=== PATIENT | male | born 1935 | race Two or more races ===

== ENCOUNTER 2016-10-29 23:18 | Inpatient (IN) | payer MEDICAID, MEDICARE ==
[2016-10-29] MEDS ORDERED: IV NS 0.9% 500 ML IV ONE (23:32)
[2016-10-29] MEDS ORDERED: IV SET PRIMARY 1 EA INFUS.SET MC ONE ×2 (23:32)
[2016-10-29] MEDS ORDERED: TERA2CAP4 PO (23:35)
[2016-10-29] MEDS ORDERED: SPIR25TA4 PO (23:35)
[2016-10-29] MEDS ORDERED: FURO-145 PO (23:35)
[2016-10-29] MEDS ORDERED: AMLO2.5T PO (23:35)
[2016-10-29] MEDS ORDERED: AMIO100T4 PO (23:35)
[2016-10-29] MEDS ORDERED: METF500T4 PO (23:35)
[2016-10-29] MEDS ORDERED: DONE23TA3 PO (23:35)
[2016-10-30] MEDS ORDERED: IV NS 0.9% 500 ML BAG IV ONE
[2016-10-30] MEDS ORDERED: IV SET PRIMARY 1 EA INFUS.SET MC ONE (00:26)
[2016-10-30] MEDS ORDERED: IV NS 0.9% 1,000 ML ONE ×4 (00:26→05:51)
[2016-10-30] MEDS ORDERED: IV NS 0.9% 1,000 ML BAG IV ONE ×2 (01:00→04:00)
[2016-10-30] MEDS ORDERED: METF10002 PO (01:22)
[2016-10-30] MEDS ORDERED: TERA5CAP4 PO (01:22)
[2016-10-30] MEDS ORDERED: DONE5TAB34 PO (01:29)
[2016-10-30] MEDS ORDERED: AMLO-62 PO (01:29)
[2016-10-30] MEDS ORDERED: FURO40TA5 PO (01:29)
[2016-10-30] MEDS ORDERED: IV NS 0.9% 1,000 ML IV ONE (01:32)
[2016-10-30] MEDS ORDERED: ONDANSETRON HCL/PF 4 MG/2 ML VIAL IVP PRN (03:30)
[2016-10-30] MEDS ORDERED: ACETAMINOPHEN 325 MG TABLET PO PRN (03:30)
[2016-10-30] MEDS ORDERED: DEXTROSE 50%-WATER 50 ML DISP.SYRIN IV PRN (03:30)
[2016-10-30] MEDS ORDERED: IV SET PRIMARY PUMP SET 1 EA INFUS.SET MC ONE (04:47)
[2016-10-30] MEDS: BLOOD SUGAR DIAGNOSTIC 1 EACH STRIP IN SCH ×4 (06:34→22:21)
[2016-10-30] MEDS: IV NS 0.9% 1,000 ML IV PRN ×3 (06:49→22:25)
[2016-10-30] MEDS: PANTOPRAZOLE 40 MG TABLET.DR PO SCH (09:48)
[2016-10-30] MEDS: DONEPEZIL 5 MG TABLET PO SCH ×2 (09:48→17:03)
[2016-10-30] MEDS: AMIODARONE HCL 200 MG TABLET PO SCH (11:30)
[2016-10-30] MEDS: INSULIN REGULAR, HUMAN 100 UNIT/ML 3 ML VIAL SQ PRN (12:00)
[2016-10-30] MEDS: TERAZOSIN HCL 5 MG CAPSULE PO SCH (18:40)
[2016-10-31] MEDS: BLOOD SUGAR DIAGNOSTIC 1 EACH STRIP IN SCH ×4 (06:32→21:10)
[2016-10-31] MEDS: PANTOPRAZOLE 40 MG TABLET.DR PO SCH (08:48)
[2016-10-31] MEDS: DONEPEZIL 5 MG TABLET PO SCH ×2 (08:50→16:56)
[2016-10-31] MEDS: AMIODARONE HCL 200 MG TABLET PO SCH (08:52)
[2016-10-31] MEDS ORDERED: SECONDARY IV SET 1 EA INFUS.SET MC ONE (09:53)
[2016-10-31] MEDS: Magnesium 1GM/D5W 100ML PREMIX 100 ML IV SCH ×4 (09:57→15:19)
[2016-10-31] MEDS: INSULIN REGULAR, HUMAN 100 UNIT/ML 3 ML VIAL SQ PRN (12:14)
[2016-10-31] MEDS: IV NS 0.9% 1,000 ML IV PRN (15:52)
[2016-10-31] MEDS: TERAZOSIN HCL 5 MG CAPSULE PO SCH (16:57)
[2016-11-01] MEDS: IV NS 0.9% 1,000 ML IV PRN ×2 (03:29→21:25)
[2016-11-01] MEDS: BLOOD SUGAR DIAGNOSTIC 1 EACH STRIP IN SCH ×4 (07:30→21:25)
[2016-11-01] MEDS: PANTOPRAZOLE 40 MG TABLET.DR PO SCH (08:26)
[2016-11-01] MEDS: DONEPEZIL 5 MG TABLET PO SCH ×2 (08:26→17:28)
[2016-11-01] MEDS: AMIODARONE HCL 200 MG TABLET PO SCH (08:27)
[2016-11-01] MEDS ORDERED: FURO-144 PO (11:08)
[2016-11-01] MEDS: TERAZOSIN HCL 5 MG CAPSULE PO SCH (17:29)
[2016-11-01] MEDS ORDERED: K PHOS NEUTRAL 250 MG TABLET PO ONE (17:30)
[2016-11-01] MEDS: INSULIN REGULAR, HUMAN 100 UNIT/ML 3 ML VIAL SQ PRN (17:31)
[2016-11-02] MEDS: BLOOD SUGAR DIAGNOSTIC 1 EACH STRIP IN SCH ×4 (08:22→22:09)
[2016-11-02] MEDS: PANTOPRAZOLE 40 MG TABLET.DR PO SCH (08:26)
[2016-11-02] MEDS: AMIODARONE HCL 200 MG TABLET PO SCH (08:26)
[2016-11-02] MEDS: DONEPEZIL 5 MG TABLET PO SCH ×2 (08:26→16:35)
[2016-11-02] MEDS: INSULIN REGULAR, HUMAN 100 UNIT/ML 3 ML VIAL SQ PRN (16:37)
[2016-11-03] MEDS: BLOOD SUGAR DIAGNOSTIC 1 EACH STRIP IN SCH ×2 (08:26→12:01)
[2016-11-03] MEDS: PANTOPRAZOLE 40 MG TABLET.DR PO SCH (08:44)
[2016-11-03] MEDS: AMIODARONE HCL 200 MG TABLET PO SCH (08:44)
[2016-11-03] MEDS: DONEPEZIL 5 MG TABLET PO SCH (08:44)
[2016-11-03] MEDS: INSULIN REGULAR, HUMAN 100 UNIT/ML 3 ML VIAL SQ PRN (14:51)
== END 2016-11-03 16:56 | disposition home or self-care (01) | DRG 48 ==
DX: G90.8 Other disorders of autonomic nervous system (principal); N17.0 Acute kidney failure with tubular necrosis; I50.23 Acute on chronic systolic (congestive) heart failure; I95.1 Orthostatic hypotension; I13.0 Hypertensive heart and chronic kidney disease with heart failure and stage 1 through stage 4 chronic kidney disease, or unspecified chronic kidney disease; E11.22 Type 2 diabetes mellitus with diabetic chronic kidney disease; F03.90 Unspecified dementia, unspecified severity, without behavioral disturbance, psychotic disturbance, mood disturbance, and anxiety; N18.9 Chronic kidney disease, unspecified; Z95.5 Presence of coronary angioplasty implant and graft; Z95.810 Presence of automatic (implantable) cardiac defibrillator; I25.10 Atherosclerotic heart disease of native coronary artery without angina pectoris; D64.9 Anemia, unspecified; E03.9 Hypothyroidism, unspecified; N40.0 Benign prostatic hyperplasia without lower urinary tract symptoms

== ENCOUNTER 2018-01-06 17:56 | Inpatient (IN) | payer MEDICAID, MEDICARE ==
[~2018-01-06] VITALS: Ht 165.1 cm; Wt 70.4 kg
[~2018-01-06 17:56] MED LIST: AMIO100T4 PO; AMLO-62 PO; DONE5TAB34 PO; FURO-144 PO; METF-442 PO; SPIR25TA6 PO
[2018-01-06] MEDS ORDERED: ASPIRIN 325 MG TABLET PO ONE (18:30)
[2018-01-06 18:36] LABS: BASOPHILS # (AUTO) 0.1 /CMM (0.0-0.2); EOSINOPHILS % (AUTO) 4.7 % (0.0-6.0); HEMATOCRIT 34 % (39-51); HEMOGLOBIN 11.4 g/dL (13.5-17.5); LYMPHOCYTES # (AUTO) 1.7 /CMM (0.8-4.8); MEAN CORPUSCULAR HGB CONC 34 g/dl (31.0-36.0); MEAN CORPUSCULAR VOLUME 91 fL (80-96); MONOCYTES # (AUTO) 0.4 /CMM (0.1-1.30); NEUTROPHILS # (AUTO) 3.8 /CMM (1.8-8.9); NEUTROPHILS % (AUTO) 60.3 % (43.0-81.0); PLATELET COUNT (AUTO) 177 /CMM (150-450); RDW COEFFICIENT OF VARIATION 14.4 (11.5-15.0); RED BLOOD CELL COUNT(AUTO) 3.67 MIL/uL (4.5-6.0); WHITE BLOOD COUNT (AUTO) 6.3 K/uL (4.3-11.0)
[2018-01-06] MEDS ORDERED: ASPIRIN 325 MG TABLET ONE (18:37)
--- NOTE | 2018-01-06 18:39 | NUR ---
SITE DAMAGE PREVENTION TECHNICIAN AT BEDSIDE
[2018-01-06 18:46] LABS: CALCIUM, SERUM 9.4 mg/dL (8.5-10.1); CARBON DIOXIDE 17 mmol/L (21-32); CHLORIDE 110 mmol/L (98-107); CREATININE 1.2 mg/dL (0.6-1.3); GLUCOSE 103 mg/dL (74-106); POTASSIUM 5.6 mmol/L (3.5-5.1); SODIUM SERUM 137 mmol/L (136-145); UREA NITROGEN, BLOOD 18 mg/dL (7-18)
[2018-01-06 18:48] LABS: INR 1.08 (0.85-1.15)
[2018-01-06 18:53] LABS: TROPONIN I < 0.017 ng/mL (0.00-0.056)
[2018-01-06 18:58] LABS: ALANINE AMINOTRANSFERASE 13 U/L (12-78); ALBUMIN 3.2 g/dL (3.4-5.0); ALKALINE PHOSPHATASE 74 U/L (46-116); ASPARTATE AMINOTRANSFERASE 16 U/L (15-37); B-TYPE NATRIURETIC PEPTIDE 12863 PG/ML (0-125); BILIRUBIN,DIRECT 0.1 mg/dL (0.0-0.2); BILIRUBIN,TOTAL 0.2 mg/dL (0.2-1.0); TOTAL PROTEIN, SERUM 7.1 g/dL (6.4-8.2)
--- NOTE | 2018-01-06 19:16 | NUR ---
ASSUMED CARE. RECEIVED REPORT FROM AM SHIFT RN SAIMA. PT RESTING QUIETLY, NO ACUTE DISTRESS NOTED, RESP EVEN AND UNLABORED. NO PAIN OR DISCOMFORT NOTED AT THIS TIME. PENDING LAB RESULTS.
[2018-01-06] MEDS ORDERED: NITROGLYCERIN PACKET 1 GM PACKET ONE (19:43)
[2018-01-06] MEDS ORDERED: FUROSEMIDE 40 MG/4 ML VIAL ONE (19:43)
--- NOTE | 2018-01-06 19:48 | NUR ---
PT MEDICATED BY RN PER ER MD ORDER.
[2018-01-06] MEDS ORDERED: NITROGLYCERIN PACKET 1 GM PACKET TOP ONE (20:00)
[2018-01-06] MEDS ORDERED: FUROSEMIDE 40 MG/4 ML VIAL IV ONE (20:00)
[2018-01-06] MEDS ORDERED: HYDROCODONE/APAP 5/325MG 1 EACH TABLET PO PRN (20:30)
[2018-01-06] MEDS ORDERED: ONDANSETRON HCL/PF 4 MG/2 ML VIAL IVP PRN (20:30)
[2018-01-06] MEDS ORDERED: ACETAMINOPHEN 325 MG TABLET PO PRN (20:30)
--- NOTE | 2018-01-06 20:40 | NUR ---
PT IS ASSIGNED TO TELE RM#: [id number], PT IS DIAGNOSED WITH CHF, AND SRINIVAS DURHAM IS THE ACCEPTING VETERINARY POULTRY INSPECTOR
--- NOTE | 2018-01-06 20:43 | NUR ---
SRINIVAS DURHAM ACNP AT BEDSIDE TO EVAL PT.
--- NOTE | 2018-01-06 20:45 | NUR ---
REPORT CALLED TO BIOMETRIC SCREENERNORA CARLISLE. WILL TRANSPORT PT VIA ACLS PROTOCOL.
[2018-01-06 21:20] VITALS: BP 129/74
--- NOTE | 2018-01-06 21:25 | NUR ---
FIELD TRAFFIC INVESTIGATOR NOTES PT ARRIVED ON TO THE UNIT VIA [place] @[id number] ACCOMPANIED BY HIS AND DAUGHTER. PT IS PRIMARILY PORTUGUESE SPEAKER, DAUGHTER ABLE TO PROVIDE HISTORY FOR PT. PT BIB FAMILY DUE TO "DIZZINESS" IN THE MORNING. PT HAS A LEFT HAND #20 IV, INTACT AND PATENT. NO COMPLAINTS OF PAIN, SOB, OR DISTRESS AT THIS TIME. PT IS TELE MONITORED SINUS RHYTHM, WITH BBB, PVS, AND TRIGEMINY. PT HAS AN IMPLANTED DEFIB IN HIS LEFT CHEST WALL. PT ORIENTED TO THE USE OF THE CALL LIGHT. ALL PT BELONGINGS THAT ARE STAYING AT THE HOSPITAL ARE ACCOUNTED FOR AND DOCUMENTED. WILL CARRY OUT ALL MD ORDERS. SAFETY PRECAUTIONS IN PLACE. BED IN LOWEST LOCKED, POSITION, X2 SIDE RAILS UP, CALL LIGHT WITHIN REACH. WILL CONTINUE TO MONITOR.
[2018-01-06] MEDS ORDERED: DEXTROSE 50%-WATER 50 ML DISP.SYRIN IV PRN (21:30)
[2018-01-06] MEDS ORDERED: MEGE40TA GT (22:28)
[2018-01-06] MEDS ORDERED: CARV6.25 PO (22:28)
[2018-01-06] MEDS ORDERED: LEVO88TA5 PO (22:28)
[2018-01-06] MEDS: BLOOD SUGAR DIAGNOSTIC 1 EACH STRIP IN SCH (22:57)
[2018-01-07] VITALS: BP 125/76
[2018-01-07 04:00] VITALS: BP 127/73
--- NOTE | 2018-01-07 06:52 | NUR ---
RN CLOSING NOTE PT RESTING IN BED. NO COMPLAINTS OF PAIN, SOB OR DISTRESS OVERNIGHT. PT HAS A LEFT HAND #20 IV, INTACT AND PATENT. PT IS TELE MONITORED SINUS RHYTHM, WITH BBB, PVS, AND TRIGEMINY RATE IN THE 70'S. SAFETY PRECAUTIONS IN PLACE. BED IN LOWEST LOCKED, POSITION, X2 SIDE RAILS UP, CALL LIGHT WITHIN REACH. WILL ENDORSE TO DAY SHIFT NURSE FOR CONTINUITY OF CARE.
[2018-01-07 07:17] LABS: BASOPHILS % (AUTO) 0.6 % (0.0-2.0); EOSINOPHILS % (AUTO) 4.8 % (0.0-6.0); HEMATOCRIT 32 % (39-51); HEMOGLOBIN 10.6 g/dL (13.5-17.5); LYMPHOCYTES # (AUTO) 1.8 /CMM (0.8-4.8); MEAN CORPUSCULAR HGB CONC 34 g/dl (31.0-36.0); MEAN CORPUSCULAR VOLUME 92 fL (80-96); MONOCYTES # (AUTO) 0.6 /CMM (0.1-1.30); MONOCYTES % (AUTO) 9.1 % (2.0-12.0); NEUTROPHILS # (AUTO) 3.7 /CMM (1.8-8.9); NEUTROPHILS % (AUTO) 57.5 % (43.0-81.0); PLATELET COUNT (AUTO) 160 /CMM (150-450); RDW COEFFICIENT OF VARIATION 14.7 (11.5-15.0); RED BLOOD CELL COUNT(AUTO) 3.43 MIL/uL (4.5-6.0); WHITE BLOOD COUNT (AUTO) 6.4 K/uL (4.3-11.0)
--- NOTE | 2018-01-07 07:19 | NUR ---
STEEL CUTTER OPENING NOTES PT RECEIVED AWAKE IN BED IN NO ACUTE SIGNS OF DISTRESS. HOB ELEVATED. A/O X4, KHMER SPEAKING, DENIES ANY PAIN OR DISCOMFORTS AT THIS TIME. ON SUPPLEMENTAL 02 VIA N/C @ 2LPM, BREATHING EVEN AND UNLABORED. ON TELE-MONITORING WITH CURRENT READING OF SINUS RHYTHM WITH BBB WITH HR OF 83. IV ACCESS ON LEFT HAND #20 INTACT AND PATENT. SAFETY PRECAUTIONS IN PLACE. BED IN LOWEST/LOCKED POSITION WITH SIDE RAILS UP X2. CALL LIGHT WITHIN REACH. WILL CONTINUE TO MONITOR PT ACCORDINGLY.
[2018-01-07 07:25] LABS: ALANINE AMINOTRANSFERASE 14 U/L (12-78); ALBUMIN 2.9 g/dL (3.4-5.0); ALKALINE PHOSPHATASE 72 U/L (46-116); ASPARTATE AMINOTRANSFERASE 17 U/L (15-37); BILIRUBIN,TOTAL 0.3 mg/dL (0.2-1.0); CALCIUM, SERUM 9.1 mg/dL (8.5-10.1); CARBON DIOXIDE 21 mmol/L (21-32); CHLORIDE 111 mmol/L (98-107); CREATININE 1.2 mg/dL (0.6-1.3); GLUCOSE 90 mg/dL (74-106); MAGNESIUM 1.3 mg/dL (1.8-2.4); PHOSPHORUS 3.3 mg/dL (2.5-4.9); POTASSIUM 5.1 mmol/L (3.5-5.1); SODIUM SERUM 139 mmol/L (136-145); TOTAL PROTEIN, SERUM 6.3 g/dL (6.4-8.2); UREA NITROGEN, BLOOD 17 mg/dL (7-18)
[2018-01-07] MEDS: BLOOD SUGAR DIAGNOSTIC 1 EACH STRIP IN SCH ×4 (07:44→21:21)
[2018-01-07 08:00] VITALS: BP 127/73
[2018-01-07] MEDS ORDERED: FUROSEMIDE 20 MG/2 ML VIAL IV SCH (08:00)
[2018-01-07 08:54] LABS: CHOLESTEROL 150 mg/dL (<200); HDL CHOLESTEROL 31 mg/dL (40-60); LDL 111 mg/dL (0-99); THYROID STIMULATING HORMONE 7.481 uIU/mL (0.358-3.74); TRIGLYCERIDES 99 mg/dL (30-150)
[2018-01-07] MEDS: FUROSEMIDE 40 MG/4 ML VIAL IV SCH ×2 (08:55→12:14)
[2018-01-07] MEDS: PANTOPRAZOLE 40 MG TABLET.DR PO SCH (08:55)
[2018-01-07] MEDS: MEGESTROL ACETATE 40 MG TABLET PO SCH (08:56)
[2018-01-07] MEDS: LEVOTHYROXINE SODIUM 88 MCG TABLET PO SCH (08:56)
[2018-01-07] MEDS: METFORMIN 500 MG TABLET PO SCH ×2 (08:56→16:19)
[2018-01-07] MEDS: CARVEDILOL 6.25 MG TABLET PO SCH ×2 (08:57→16:20)
[2018-01-07] MEDS: AMIODARONE HCL 200 MG TABLET PO SCH (08:57)
[2018-01-07] MEDS ORDERED: ASPIRIN EC 81 MG TABLET.DR PO SCH (09:00)
--- NOTE | 2018-01-07 09:37 | NUR ---
RN NOTES PATIENT WITH LOW MAGNESIUM LEVEL 1.3 TODAY, MAGNESIUM 4MG IV ORDERED AND WILL ADMINISTER. .
[2018-01-07] MEDS: Magnesium 1GM/D5W 100ML PREMIX 100 ML IV SCH ×4 (09:43→13:10)
[2018-01-07] MEDS: DONEPEZIL 5 MG TABLET PO SCH ×2 (09:44→16:20)
[2018-01-07 10:16] LABS: APPEARANCE,URINE CLEAR (CLEAR); BILIRUBIN,URINE NEGATIVE (NEGATIVE); BLOOD, URINE 1+ Ery/uL (NEGATIVE); COLOR,URINE YELLOW (YELLOW); KETONES,URINE NEGATIVE (NEGATIVE); LEUKOCYTE ESTERASE ,URINE NEGATIVE (NEGATIVE); NITRITE, URINE NEGATIVE (NEGATIVE); PH,URINE 5.5 (5.0-8.0); PROTEIN,URINE 1+ mg/dl (NEGATIVE); UGLUCOSE NEGATIVE (NEGATIVE); UROBILINOGEN,URINE 0.2 EU/dL (0.2)
[2018-01-07 10:22] LABS: BACTERIA,URINE None seen /HPF (None Seen); SQUAMOUS EPITHELIAL CELL,UR Few /HPF (None Seen); WBC,URINE NONE SEEN /HPF (0-3)
[2018-01-07] MEDS: INSULIN REGULAR, HUMAN 100 UNIT/ML 3 ML VIAL SQ PRN ×2 (12:17→17:32)
[2018-01-07 16:00] VITALS: BP 123/72
[2018-01-07] MEDS ORDERED: RIVAROXABAN 10 MG TABLET PO SCH (17:00)
--- NOTE | 2018-01-07 18:14 | NUR ---
MS RN CLOSING NOTES PATIENT AWAKE IN BED WATCHING TV. HOB ELEVATED. A/O X4, UZBEK SPEAKING. VISITED BY DAUGHTER AND TODAY. PT ON ROOM AIR AT THIS TIME, TOLERATING WELL WITH NO SOB NOTED DURING THE DAY, SP02 98%. IV ACCESS ON LEFT HAND G#20 INTACT AND PATENT, FLUSHES EASILY. ALL SAFETY PRECAUTIONS KEPT IN PLACE. BED IN LOWEST/LOCKED POSITION WITH SIDE RAILS UP X2. CALL LIGHT WITHIN REACH. ALL DUE MEDS GIVEN AND TOLERATED, NO ILL EFFECTS NOTED. . WILL ENDORSED TO DIRECTOR OF OPTIMIZATION NURSE FOR DHEERAJ.
--- NOTE | 2018-01-07 19:15 | NUR ---
RN OPENING NOTES PT AWAKE AND RESTING IN BED. PT IS ALERT AND ORIENTED. YAKUT SPEAKER. FAMILY AT BEDSIDE. NO COMPLAINTS OF PAIN, DISTRESS OR SOB AT THIS TIME. PT IS CURRENTLY ON RA AND SATING WELL. PT HAS A LEFT HAND IV #20 INTACT AND PATENT. SAFETY PRECAUTIONS ARE IN PLACE BED IN LOWEST, LOCKED POSITION, X2 SIDE RAILS UP. CALL LIGHT WITHIN REACH. WILL CONTINUE TO MONITOR.
[2018-01-07 20:00] VITALS: BP_SYST 117; BP_SYST 124; BP_SYST 126; BP_DIAS 70; BP_DIAS 72
--- NOTE | 2018-01-08 06:35 | NUR ---
RN CLOSING NOTE PT RESTING IN BED. PT IS [place] SPEAKER. NO COMPLAINTS OF PAIN, SOB OR DISTRESS OVERNIGHT. PT HAS A LEFT HAND #20 IV, INTACT AND PATENT. ALL PT NEEDS MET SAFETY PRECAUTIONS IN PLACE. BED IN LOWEST LOCKED, POSITION, X2 SIDE RAILS UP, CALL LIGHT WITHIN REACH. WILL ENDORSE TO DAY SHIFT NURSE FOR CONTINUITY OF CARE.
[2018-01-08 06:37] LABS: BASOPHILS % (AUTO) 0.8 % (0.0-2.0); EOSINOPHILS % (AUTO) 4.4 % (0.0-6.0); HEMATOCRIT 32 % (39-51); HEMOGLOBIN 10.7 g/dL (13.5-17.5); LYMPHOCYTES # (AUTO) 1.7 /CMM (0.8-4.8); LYMPHOCYTES % (AUTO) 29.3 % (20.0-44.0); MEAN CORPUSCULAR HGB CONC 33 g/dl (31.0-36.0); MEAN CORPUSCULAR VOLUME 92 fL (80-96); MONOCYTES # (AUTO) 0.6 /CMM (0.1-1.30); MONOCYTES % (AUTO) 10.3 % (2.0-12.0); NEUTROPHILS # (AUTO) 3.3 /CMM (1.8-8.9); NEUTROPHILS % (AUTO) 55.2 % (43.0-81.0); PLATELET COUNT (AUTO) 170 /CMM (150-450); RDW COEFFICIENT OF VARIATION 14.6 (11.5-15.0); RED BLOOD CELL COUNT(AUTO) 3.49 MIL/uL (4.5-6.0); WHITE BLOOD COUNT (AUTO) 5.9 K/uL (4.3-11.0)
[2018-01-08 06:49] LABS: ALANINE AMINOTRANSFERASE 13 U/L (12-78); ALBUMIN 2.9 g/dL (3.4-5.0); ALKALINE PHOSPHATASE 72 U/L (46-116); ASPARTATE AMINOTRANSFERASE 13 U/L (15-37); BILIRUBIN,TOTAL 0.3 mg/dL (0.2-1.0); CALCIUM, SERUM 8.9 mg/dL (8.5-10.1); CARBON DIOXIDE 21 mmol/L (21-32); CHLORIDE 105 mmol/L (98-107); CREATININE 1.3 mg/dL (0.6-1.3); GLUCOSE 100 mg/dL (74-106); MAGNESIUM 1.8 mg/dL (1.8-2.4); PHOSPHORUS 3.6 mg/dL (2.5-4.9); POTASSIUM 4.8 mmol/L (3.5-5.1); SODIUM SERUM 135 mmol/L (136-145); TOTAL PROTEIN, SERUM 6.3 g/dL (6.4-8.2); UREA NITROGEN, BLOOD 21 mg/dL (7-18)
--- NOTE | 2018-01-08 07:17 | NUR ---
MS RN OPENING NOTE PATIENT RESTING COMFORTABLY IN BED AT THIS TIME. NO FACIAL GRIMACING NOTED. NO SOB OR DISTRESS NOTED. ON ROOM AIR TOLERATING WELL. ABLE TO COMMUNICATE NEEDS. IV ON LEFT HAND INTACT AND PATENT NO REDNESS OR SWELLING NOTED, NO IV FLUIDS RUNNING AT THIS TIME. BLOOD SUGAR TO BE MONITORED THROUGHOUT SHIFT. LABS PENDING AT THIS TIME. AWAITING FOR CHEST X-RAY. WILL CONTINUE TO MONITOR THROUGHOUT SHIFT
[2018-01-08 08:00] VITALS: BP 121/73
[2018-01-08] MEDS: PANTOPRAZOLE 40 MG TABLET.DR PO SCH (08:13)
[2018-01-08] MEDS: METFORMIN 500 MG TABLET PO SCH (08:13)
[2018-01-08] MEDS: MEGESTROL ACETATE 40 MG TABLET PO SCH (08:13)
[2018-01-08] MEDS: DONEPEZIL 5 MG TABLET PO SCH (08:13)
[2018-01-08] MEDS: AMIODARONE HCL 200 MG TABLET PO SCH (08:13)
[2018-01-08] MEDS: LEVOTHYROXINE SODIUM 88 MCG TABLET PO SCH (08:13)
[2018-01-08 08:14] VITALS: BP 121/73
[2018-01-08] MEDS: CARVEDILOL 6.25 MG TABLET PO SCH (08:14)
[2018-01-08] MEDS: BLOOD SUGAR DIAGNOSTIC 1 EACH STRIP IN SCH (08:14)
--- NOTE | 2018-01-08 08:17 | NUR ---
MS RN NOTE PATIENT HAD CHEST X-RAY TAKEN, AWAITING RESULTS AT THIS TIME. ALL MORNING MEDICATION GIVEN ORDERED. WILL CONTINUE TO MONITOR PATIENT
[2018-01-08] MEDS ORDERED: BENAZEPRIL HCL 20 MG TABLET PO SCH (09:00)
[2018-01-08] MEDS ORDERED: FUROSEMIDE 40 MG TABLET PO SCH (09:00)
[2018-01-08] MEDS ORDERED: AMLODIPINE BESYLATE 10 MG TABLET PO SCH (09:00)
--- NOTE | 2018-01-08 11:05 | NUR ---
MS MAINTENANCE OF WAY SUPERVISOR NOTE PATIENT SENT HOME IN STABLE CONDITION. NO PAIN AT THIS TIME. NO SOB OR DISTRESS NOTED, DOES WELL ON ROOM AIR 97%. ABLE TO COMMUNICATE NEEDS. ALL DUE MEDICATIONS GIVEN ORDERED PRIOR TO DISCHARGE. ALL NURSING CARE NEEDS ATTENDED TO NEEDED. ALL DISCHARGE CARE INSTRUCTIONS GIVEN TO PATIENT AND AT BEDSIDE. PRESCRIPTION GIVEN TO AT BEDSIDE, EXPLAINED RISKS AND BENEFITS OF MEDICATION. ALL BELONGINGS ACCOUNTED FOR UPON LEAVING. NO SKIN ISSUES PRESENT. IV REMOVED, SKIN INTACT. LEFT VIA PRIVATE CAR WITH AND FAMILY.
== END 2018-01-08 10:54 | disposition home or self-care (01) | DRG 194 ==
LOC: ER 17:58 → EDBD 21:04 → TELE 21:04 → MED 01-07 09:08
PROVIDERS: ADMIT Nurse Practitioner Acute Care; ATTEND Nurse Practitioner Acute Care
DX: I11.0 Hypertensive heart disease with heart failure (principal); E44.0 Moderate protein-calorie malnutrition; J90 Pleural effusion, not elsewhere classified; F03.90 Unspecified dementia, unspecified severity, without behavioral disturbance, psychotic disturbance, mood disturbance, and anxiety; E88.09 Other disorders of plasma-protein metabolism, not elsewhere classified; E83.42 Hypomagnesemia; E11.9 Type 2 diabetes mellitus without complications; D63.8 Anemia in other chronic diseases classified elsewhere; E87.5 Hyperkalemia; E03.9 Hypothyroidism, unspecified; I25.10 Atherosclerotic heart disease of native coronary artery without angina pectoris; Z79.84 Long term (current) use of oral hypoglycemic drugs; Z95.810 Presence of automatic (implantable) cardiac defibrillator; I50.23 Acute on chronic systolic (congestive) heart failure; Z98.61 Coronary angioplasty status; Z86.718 Personal history of other venous thrombosis and embolism; N40.0 Benign prostatic hyperplasia without lower urinary tract symptoms; M62.50 Muscle wasting and atrophy, not elsewhere classified, unspecified site; Z68.25 Body mass index [BMI] 25.0-25.9, adult
CPT/HCPCS: 36415; 71045-TC; 80048-TC; 80053-TC; 80061-TC; 80076-TC; 81000-TC; 82962-TC; 83735-TC; 83880; 84100-TC; 84132-TC; 84443-TC; 84484-TC; 85025-TC; 85730-TC; 87081-TC; 87086-TC; 93307-TC; 93971-TC; A4606; J1815; J1940; J3475; Z7610

== ENCOUNTER 2018-05-23 10:24 | Inpatient (IN) | payer MEDICAID, MEDICARE ==
[~2018-05-23] VITALS: Ht 162.6 cm; Wt 69.1 kg
[~2018-05-23 10:24] MED LIST changes: +CARV6.25 PO; +LEVO88TA5 PO; +MEGE40TA GT; -METF-442 PO; +METF10004 PO
--- NOTE | 2018-05-23 10:55 | NUR ---
PT BIB FAMILY C/O COUGH, CONGESTION, WEAKNESS SINCE TUESDAY. PT STATED, VIA FAMILY LEATHER CRAFTSMAN, "I THINK I'M HAVING A HEART ATTACK". DENIES CP. RESP EVEN UNLABORED. SKIN WARM DRY. THAI SPEAKING WITH FAMILY HELPING WITH TRANSLATION. IN ER BED 09 ON MONITOR.
[2018-05-23 11:08] LABS: BASOPHILS % (AUTO) 0.5 % (0.0-2.0); EOSINOPHILS % (AUTO) 3.9 % (0.0-6.0); HEMATOCRIT 33 % (39-51); LYMPHOCYTES % (AUTO) 22.1 % (20.0-44.0); MEAN CORPUSCULAR HEMOGLOBIN 30 PG (26.0-33.0); MEAN CORPUSCULAR HGB CONC 33 g/dl (31.0-36.0); MEAN CORPUSCULAR VOLUME 91 fL (80-96); MONOCYTES # (AUTO) 0.6 /CMM (0.1-1.30); MONOCYTES % (AUTO) 7.2 % (2.0-12.0); NEUTROPHILS % (AUTO) 66.3 % (43.0-81.0); PLATELET COUNT (AUTO) 149 /CMM (150-450); RDW COEFFICIENT OF VARIATION 13.3 (11.5-15.0); RED BLOOD CELL COUNT(AUTO) 3.68 MIL/uL (4.5-6.0); WHITE BLOOD COUNT (AUTO) 8.9 K/uL (4.3-11.0)
[2018-05-23 11:22] LABS: CALCIUM, SERUM 9.2 mg/dL (8.5-10.1); CARBON DIOXIDE 18 mmol/L (21-32); CHLORIDE 108 mmol/L (98-107); CREATININE 1.8 mg/dL (0.6-1.3); GLUCOSE 144 mg/dL (74-106); POTASSIUM 5.4 mmol/L (3.5-5.1); SODIUM SERUM 139 mmol/L (136-145); UREA NITROGEN, BLOOD 41 mg/dL (7-18)
[2018-05-23 11:30] LABS: TROPONIN I 0.271 ng/mL (0.00-0.056)
[2018-05-23] MEDS ORDERED: IV NS 0.9% 500 ML BAG IV ONE (11:30)
[2018-05-23 11:35] LABS: B-TYPE NATRIURETIC PEPTIDE 12879 PG/ML (0-125)
--- NOTE | 2018-05-23 11:43 | NUR ---
CALLED [facility] PAGED ADMITTING MD BLAIR SWAN FOR THIS PATIENT.
--- NOTE | 2018-05-23 11:49 | NUR ---
CALLED NURSING SUP FOR TELE BED FOR THIS PATIENT.
[2018-05-23] MEDS ORDERED: FUROSEMIDE 40 MG/4 ML VIAL ONE (11:57)
[2018-05-23] MEDS ORDERED: ASPIRIN 81 MG TAB.CHEW ONE (11:57)
[2018-05-23] MEDS ORDERED: ASPIRIN 81 MG TAB.CHEW PO ONE (12:00)
[2018-05-23] MEDS ORDERED: FUROSEMIDE 40 MG/4 ML VIAL IV ONE (12:00)
--- NOTE | 2018-05-23 12:00 | NUR ---
ADMIT TO ROOM 326-2 TELE
--- NOTE | 2018-05-23 12:16 | NUR ---
REPORT GIVEN TO SAMM MELENDEZ FOR ADMISSION. RESTING QUIETLY, NAD NOTED, ON MONITOR.
[2018-05-23] MEDS ORDERED: Z GUARD REMEDY 2 OZ OINT TP PRN (12:30)
[2018-05-23] MEDS ORDERED: DEXTROSE 50%-WATER 50 ML DISP.SYRIN IV PRN (12:30)
[2018-05-23] MEDS ORDERED: ACETAMINOPHEN 325 MG TABLET PO PRN (12:30)
[2018-05-23] MEDS ORDERED: ONDANSETRON HCL/PF 4 MG/2 ML VIAL IVP PRN (12:30)
[2018-05-23] MEDS ORDERED: MAG HYDROX/AL HYDROX/SIMETH 30 ML UDC PO PRN (12:30)
[2018-05-23] MEDS ORDERED: ZOLPIDEM TARTRATE 5 MG TABLET PO PRN (12:30)
[2018-05-23] MEDS ORDERED: *INSULIN REGULAR(HUMULIN R)HUM 100 UNIT/ML VIAL SQ PRN (12:30)
[2018-05-23] MEDS ORDERED: MAGNESIUM HYDROXIDE 30 ML UDC PO PRN (12:30)
[2018-05-23] MEDS ORDERED: HYDROCODONE/APAP 5/325MG 1 EACH TABLET PO PRN (12:30)
--- NOTE | 2018-05-23 12:40 | NUR ---
TRANSPORTED TO [facility] IN STABLE CONDITION VIA ACLS PROTOCOL
[2018-05-23 13:00] VITALS: BP 116/64
[2018-05-23] MEDS ORDERED: BUMETANIDE INJ 8 MG in IV NS 0.9% 48 ML IV ONE (13:00)
--- NOTE | 2018-05-23 13:00 | NUR ---
RECEIVED PATIENT FROM ER VIA RWILLIAMS, DIAGNOSIS OF CHF. PATIENT A/OX3, [place] CITIZEN SPEAKING ONLY, FAMILY AT BEDSIDE AND WAS ABLE TO TRANSLATE FOR THE PATIENT, ASSISTANCE NEEDED WHEN AMBULATING PER FAMILY. BED ALARM ON FOR SAFETY. PLACED PATIENT ON TELEMONIOTR, SR WITH BBB HR 95. NO ACUTE DISTRESS, NO SOB. DENIED CHEST PAIN OR DISCOMFORT AT THIS TIME. TOLERATING ROOM AIR, SATTING AT 98%. IV ON LEFT HAND GAUGE 20 INTACT AND PATENT. ADMITTING ORDERS NOTED AND WILL CARRY OUT. ALL BELONGINGS CHECKED AND LISTED ON BELONGINGS FORM. KEPT PATIENT SAFE AND COMFORTABLE. BED IN LOW/LOCKED POSITION, SEMIFOWLERS, SIDERAILS UPX2, BED ALARM ON, CALL LIGHT IN REACH. WILL CONTINUE TO MONITOR ACCORDINGLY
[2018-05-23] MEDS: AMIODARONE HCL 200 MG TABLET PO SCH (14:23)
--- NOTE | 2018-05-23 15:00 | NUR ---
BELONGINGS WAS SENT HOME WITH DAUGHTER.
[2018-05-23 16:00] VITALS: BP 95/50
[2018-05-23] MEDS: DONEPEZIL 5 MG TABLET PO SCH (17:09)
[2018-05-23] MEDS: MEGESTROL ACETATE 40 MG TABLET GT SCH (17:09)
[2018-05-23] MEDS: CARVEDILOL 6.25 MG TABLET PO SCH (17:09)
[2018-05-23] MEDS: BLOOD SUGAR DIAGNOSTIC 1 EACH STRIP VI SCH ×2 (17:10→22:06)
--- NOTE | 2018-05-23 19:00 | NUR ---
RN NOTES RECEIVED PT IN BED, AWAKE, ALERT AND ORIENTED X 3, DAUGHTER AT BEDSIDE. PT WITH NO SOB, IN NO ACUTE DISTRESS AT THIS TIME. BUMEX INFUSING ORDERED. ALL PATIENT'S NEEDS ATTENDED TO. PLACED BED IN LOW POSITION AND LOCKED IN PLACE. CALL LIGHT WITHIN EASY REACH. WILL CONTINUE TO MONITOR.
--- NOTE | 2018-05-23 19:13 | NUR ---
RN CLOSING NOTES PATIENT IN STABLE CONDITION. ALL NEEDS ATTENDED AND PROVIDED. ALL DUE MEDS GIVEN ORDERED. KEPT PATIENT SAFE AND COMFORTABLE. BED IN LOW/LOCKED POSITION, SIDERAILS UPX2, SEMIFOWLERS, BED ALARM ON, CALL LIGHT LIGHT IN REACH. ENDORSED TO NIGHT RN FOR DHEERAJ.
[2018-05-23 20:00] VITALS: BP 102/52
[2018-05-23] MEDS ORDERED: FUROSEMIDE 40 MG/4 ML VIAL IV SCH (21:00)
[2018-05-24] VITALS: BP 95/51
[2018-05-24 04:00] VITALS: BP 101/54
--- NOTE | 2018-05-24 06:30 | NUR ---
RN CLOSING NOTES RECEIVED PATIENT IN BED, ALERT AND ORIENTED, VERBALLY RESPONSIVE. PT WITH NO EPISODE OF SOB DURING THIS SHIFT, BREATHING EVEN AND UNLABORED, ABLE TO STAND BY THE BED AND USE THE URINAL. ALL PATIENT'S NEEDS ATTENDED TO THROUGHOUT THE SHIFT. PLACED CALL LIGHT WITHIN EASY REACH, BED IN LOW POSITION AND LOCKED IN PLACE. WILL ENDORSE TO AM SHIFT NURSE FOR CONTINUITY OF CARE.
[2018-05-24 06:31] LABS: BASOPHILS % (AUTO) 0.5 % (0.0-2.0); EOSINOPHILS % (AUTO) 3.8 % (0.0-6.0); HEMATOCRIT 36 % (39-51); HEMOGLOBIN 11.8 g/dL (13.5-17.5); LYMPHOCYTES # (AUTO) 1.6 /CMM (0.8-4.8); LYMPHOCYTES % (AUTO) 17.6 % (20.0-44.0); MEAN CORPUSCULAR HEMOGLOBIN 31 PG (26.0-33.0); MEAN CORPUSCULAR HGB CONC 33 g/dl (31.0-36.0); MEAN CORPUSCULAR VOLUME 93 fL (80-96); MONOCYTES # (AUTO) 0.7 /CMM (0.1-1.30); MONOCYTES % (AUTO) 7.6 % (2.0-12.0); NEUTROPHILS # (AUTO) 6.3 /CMM (1.8-8.9); NEUTROPHILS % (AUTO) 70.5 % (43.0-81.0); PLATELET COUNT (AUTO) 173 /CMM (150-450); RDW COEFFICIENT OF VARIATION 13.8 (11.5-15.0); RED BLOOD CELL COUNT(AUTO) 3.86 MIL/uL (4.5-6.0); WHITE BLOOD COUNT (AUTO) 8.9 K/uL (4.3-11.0)
[2018-05-24] MEDS: BLOOD SUGAR DIAGNOSTIC 1 EACH STRIP VI SCH ×4 (06:53→21:36)
[2018-05-24 07:14] LABS: CALCIUM, SERUM 9.6 mg/dL (8.5-10.1); CARBON DIOXIDE 19 mmol/L (21-32); CHLORIDE 107 mmol/L (98-107); CREATININE 1.9 mg/dL (0.6-1.3); GLUCOSE 137 mg/dL (74-106); POTASSIUM 5.3 mmol/L (3.5-5.1); SODIUM SERUM 140 mmol/L (136-145); UREA NITROGEN, BLOOD 43 mg/dL (7-18)
[2018-05-24 07:23] LABS: ALANINE AMINOTRANSFERASE 14 U/L (12-78); ALBUMIN 3.4 g/dL (3.4-5.0); ALKALINE PHOSPHATASE 72 U/L (46-116); ASPARTATE AMINOTRANSFERASE 16 U/L (15-37); BILIRUBIN,TOTAL 0.5 mg/dL (0.2-1.0); MAGNESIUM 1.5 mg/dL (1.8-2.4); PHOSPHORUS 3.6 mg/dL (2.5-4.9); TOTAL PROTEIN, SERUM 7.7 g/dL (6.4-8.2); TROPONIN I 0.215 ng/mL (0.00-0.056)
--- NOTE | 2018-05-24 07:30 | NUR ---
still awaiting [facility] report as lab needs to be redrawn. Addendum: 05/24/18 at 1957 by CARLOS GRANDE RN incorrect pt.
--- NOTE | 2018-05-24 07:30 | NUR ---
received pt. in am alert and oriented x2.weak,no acute distress.potassium level elevated.
[2018-05-24 08:00] VITALS: BP 114/70
[2018-05-24] MEDS: CARVEDILOL 6.25 MG TABLET PO SCH ×2 (09:00→17:00)
[2018-05-24] MEDS ORDERED: SPIRONOLACTONE 25 MG TABLET PO SCH (09:00)
--- NOTE | 2018-05-24 10:00 | NUR ---
dr. zuñiga in to see pt. orders given.
[2018-05-24] MEDS: MEGESTROL ACETATE 40 MG TABLET GT SCH ×2 (10:04→19:12)
[2018-05-24] MEDS: ASPIRIN 325 MG TABLET PO SCH (10:04)
[2018-05-24] MEDS: DONEPEZIL 5 MG TABLET PO SCH ×2 (10:05→19:12)
[2018-05-24] MEDS: LEVOTHYROXINE SODIUM 88 MCG TABLET PO SCH (10:05)
[2018-05-24] MEDS: HEPARIN SODIUM, PORCINE 5000 UNITS/1 ML VIAL SQ SCH ×2 (10:08→21:34)
[2018-05-24] MEDS: FUROSEMIDE 100 MG/10 ML VIAL IV SCH ×3 (10:14→19:00)
[2018-05-24] MEDS ORDERED: Magnesium 1GM/D5W 100ML PREMIX 100 ML IV SCH (11:57)
--- NOTE | 2018-05-24 12:30 | NUR ---
giving lasix iv. dtr. and at bedside.
[2018-05-24] MEDS: INSULIN REGULAR, HUMAN 100 UNIT/ML 3 ML VIAL SQ PRN ×2 (12:45→19:03)
[2018-05-24] MEDS: AMIODARONE HCL 200 MG TABLET PO SCH (14:45)
[2018-05-24 16:00] VITALS: BP 92/53
--- NOTE | 2018-05-24 16:30 | NUR ---
dr. tran here and aware of fever,states she nini enter more orders due to temp elevation.reverse isolation set up. Addendum: 05/24/18 at 8 by CARLOS GRANDE RN above note on incorrect pt.
--- NOTE | 2018-05-24 17:30 | NUR ---
ua and mrsa swab sent as per orders. Addendum: 05/24/18 at 7 by CARLOS GRANDE RN above note on incorrect pt.
[2018-05-24] MEDS ORDERED: FUROSEMIDE 40 MG/4 ML VIAL IV ONE (19:30)
--- NOTE | 2018-05-24 19:30 | NUR ---
lasix complete. bp in the lower range all day since lasix begun.mg replacement iv,as per pharmacy orders.
[2018-05-24 20:00] VITALS: BP 103/66
--- NOTE | 2018-05-24 20:00 | NUR ---
MS BUFFY INITIAL NOTES RECEIVED REPORT FROM AM NURSE AND SEEN PT IN BED AWAKE AND ALERT BRUNEIAN SPEAKING ONLY. DAUGHTER AT THE BEDSIDE TO HELPED TO TRANSLATE. DENIES ANY PAIN OR ANY DISCOMFORT AT THIS TIMES. NO SIGNS OF ANY ACUTE DISTRESS NOTED. NO SOB NOTED. RE-ORIENTED WHERE HE AT AND HOW TO USED THE CALL LIGHT SYSTEM AND ENCOURAGE HIM TO USED IT IF HE NEEDS SOME HELPED AND PT UNDERSTOOD WELL. KEPT HIM WARM AND COMFORTABLE AT ALL TIMES. WILL CONTINUE TO MONITOR. PLACE CALL LIGHT AT REACH.
[2018-05-24 20:09] VITALS: BP 103/66
--- NOTE | 2018-05-24 21:40 | NUR ---
MS MANAGER FURNITURE NOTES ROUTINE MEDS GIVEN ORDERED. BLOOD SUGAR 151, GAVE 2 UNITS OF INSULIN JUAN SQ ORDERED. NO SIGNS OF HYPO/HYPER GLYCEMIA NOTED. SNACKS ALSO SERVED DAUGHTER AT THE BEDSIDE TO HELPED TO TRANSLATE. WILL CONTINUE MONITORING.
[2018-05-25] MEDS: LEVOTHYROXINE SODIUM 88 MCG TABLET PO SCH (06:23)
[2018-05-25] MEDS: BLOOD SUGAR DIAGNOSTIC 1 EACH STRIP VI SCH ×2 (06:24→12:18)
[2018-05-25] MEDS: INSULIN REGULAR, HUMAN 100 UNIT/ML 3 ML VIAL SQ PRN ×2 (06:28→12:21)
[2018-05-25 06:35] LABS: BASOPHILS % (AUTO) 0.6 % (0.0-2.0); EOSINOPHILS % (AUTO) 5.4 % (0.0-6.0); HEMATOCRIT 36 % (39-51); HEMOGLOBIN 11.8 g/dL (13.5-17.5); LYMPHOCYTES # (AUTO) 1.9 /CMM (0.8-4.8); LYMPHOCYTES % (AUTO) 31.4 % (20.0-44.0); MEAN CORPUSCULAR HEMOGLOBIN 31 PG (26.0-33.0); MEAN CORPUSCULAR HGB CONC 33 g/dl (31.0-36.0); MEAN CORPUSCULAR VOLUME 92 fL (80-96); MONOCYTES # (AUTO) 0.5 /CMM (0.1-1.30); MONOCYTES % (AUTO) 8.7 % (2.0-12.0); NEUTROPHILS # (AUTO) 3.3 /CMM (1.8-8.9); NEUTROPHILS % (AUTO) 53.9 % (43.0-81.0); PLATELET COUNT (AUTO) 183 /CMM (150-450); RDW COEFFICIENT OF VARIATION 13.8 (11.5-15.0); RED BLOOD CELL COUNT(AUTO) 3.85 MIL/uL (4.5-6.0); WHITE BLOOD COUNT (AUTO) 6.1 K/uL (4.3-11.0)
[2018-05-25 07:00] LABS: ALANINE AMINOTRANSFERASE 12 U/L (12-78); ALBUMIN 3.1 g/dL (3.4-5.0); ALKALINE PHOSPHATASE 64 U/L (46-116); ASPARTATE AMINOTRANSFERASE 14 U/L (15-37); BILIRUBIN,TOTAL 0.3 mg/dL (0.2-1.0); CALCIUM, SERUM 9.2 mg/dL (8.5-10.1); CARBON DIOXIDE 20 mmol/L (21-32); CHLORIDE 103 mmol/L (98-107); GLUCOSE 130 mg/dL (74-106); MAGNESIUM 1.7 mg/dL (1.8-2.4); PHOSPHORUS 4.4 mg/dL (2.5-4.9); POTASSIUM 4.5 mmol/L (3.5-5.1); SODIUM SERUM 135 mmol/L (136-145); TOTAL PROTEIN, SERUM 7.3 g/dL (6.4-8.2); UREA NITROGEN, BLOOD 46 mg/dL (7-18)
--- NOTE | 2018-05-25 07:07 | NUR ---
MS EGG CRATER CLOSING NOTES PT BAKC TO REST AFTER BLOOD DRAWN AND AT THE SAME TIME BLOOD SUGAR CHECKED. 141, 2 UNITS OF INSULIN GIVEN JUAN SQ ORDERED. PT STABLE JUAN THE NIGHT AND SLEPT WELL. NO SIGNS OF ANY ACUTE DISTRESS OR ANY SOB NOTED JUAN THE NIGHT, ALL DUE MEDS GIVEN AND ALL NEEDS MET. ENDORSE TO AM NURSE FOR CONTINUITY OF CARE. PLACE CALL LIGHT AT REACH.
[2018-05-25] MEDS ORDERED: Magnesium 1GM/D5W 100ML PREMIX 100 ML IV SCH (07:30)
[2018-05-25 08:00] VITALS: BP 109/68
[2018-05-25] MEDS ORDERED: FUROSEMIDE 80 MG TABLET PO SCH (09:00)
[2018-05-25] MEDS: HEPARIN SODIUM, PORCINE 5000 UNITS/1 ML VIAL SQ SCH (09:02)
[2018-05-25] MEDS: ASPIRIN 325 MG TABLET PO SCH (09:02)
[2018-05-25] MEDS: DONEPEZIL 5 MG TABLET PO SCH (09:03)
[2018-05-25] MEDS: MEGESTROL ACETATE 40 MG TABLET GT SCH (09:03)
[2018-05-25] MEDS: CARVEDILOL 6.25 MG TABLET PO SCH (09:03)
[2018-05-25] MEDS ORDERED: Magnesium 1GM/D5W 100ML PREMIX 100 ML IV ONE (09:30)
[2018-05-25] MEDS ORDERED: GLIP5TAB13 PO (10:19)
[2018-05-25 12:24] VITALS: BP 106/70
[2018-05-25] MEDS: AMIODARONE HCL 200 MG TABLET PO SCH (12:24)
--- NOTE | 2018-05-25 14:00 | NUR ---
MS RN CLOSING NOTES DISCHARGED PATIENT IN STABLE CONDITION. IV LINE WAS REMOVED. ID BAND WAS REMOVED. ALL NEEDS WERE MET. EXITCARE PROVIDED TO THE PATIENT. BELONGINGS REVIEWED WITH PATIENT. PATIENT HAS ALL BELONGINGS. PATIENT ESCORTED OUT OF THE FACILITY VIA WHEELCHAIR BY STUNTMAN. DAUGHTER IS DRIVING PATIENT HOME.
== END 2018-05-25 13:50 | disposition home or self-care (01) | DRG 194 ==
LOC: ER 10:28 → TELE 12:19 → MED 05-24 16:06
PROVIDERS: ADMIT Nurse Practitioner Acute Care; ATTEND Nurse Practitioner Acute Care
DX: I11.0 Hypertensive heart disease with heart failure (principal); I21.A1 Myocardial infarction type 2; J96.01 Acute respiratory failure with hypoxia; E11.65 Type 2 diabetes mellitus with hyperglycemia; N17.0 Acute kidney failure with tubular necrosis; E11.22 Type 2 diabetes mellitus with diabetic chronic kidney disease; D63.8 Anemia in other chronic diseases classified elsewhere; E11.9 Type 2 diabetes mellitus without complications; I50.23 Acute on chronic systolic (congestive) heart failure; I13.0 Hypertensive heart and chronic kidney disease with heart failure and stage 1 through stage 4 chronic kidney disease, or unspecified chronic kidney disease; N18.9 Chronic kidney disease, unspecified; Z79.84 Long term (current) use of oral hypoglycemic drugs; Z79.899 Other long term (current) drug therapy; E87.5 Hyperkalemia; Z95.810 Presence of automatic (implantable) cardiac defibrillator; I25.10 Atherosclerotic heart disease of native coronary artery without angina pectoris; Z95.5 Presence of coronary angioplasty implant and graft; E03.9 Hypothyroidism, unspecified; N40.0 Benign prostatic hyperplasia without lower urinary tract symptoms; Z86.718 Personal history of other venous thrombosis and embolism; F03.90 Unspecified dementia, unspecified severity, without behavioral disturbance, psychotic disturbance, mood disturbance, and anxiety
CPT/HCPCS: 36415; 71045-TC; 80048-TC; 80053-TC; 82962-TC; 83735-TC; 83880; 84100-TC; 84484-TC; 85025-TC; 87081-TC; A4216; A4606; J1644; J1815; J1940; J3475; J3490; J7040; J7050; Z7610